=== PATIENT | male | born 1980 | race Two or more races ===

== ENCOUNTER 2019-08-08 12:54 | Emergency (ER) | payer SELFPAY ==
[2019-08-08 13:01] VITALS: BP 140/85
[2019-08-08] MEDS ORDERED: ASPIRIN 81 MG TABLET CHEW PO ONE (13:30)
[2019-08-08 13:38] LABS: BASOPHILS # (AUTO) 0.04 x10^3/uL (0-0.1); BASOPHILS % (AUTO) 1 % (0-1); EOSINOPHILS # (AUTO) 0.08 x10^3/uL (0-0.4); EOSINOPHILS % (AUTO) 1 % (1-7); LYMPHOCYTES # (AUTO) 2.16 x10^3/uL (1-3.4); LYMPHOCYTES % (AUTO) 28 % (22-44); MD NO; MEAN CORPUSCULAR HEMOGLOBIN 29.9 pg (27.5-34.5); MEAN CORPUSCULAR HGB CONC 34.3 g/dL (33.2-36.2); MEAN CORPUSCULAR VOLUME 87.2 fL (81-97); MEAN PLATELET VOLUME 8.1 fL (7.4-10.4); MONOCYTES # (AUTO) 0.45 x10^3/uL (0.2-0.8); MONOCYTES % (AUTO) 6 % (2-9); NEUTROPHILS # (AUTO) 5.13 x10^3/uL (1.8-6.8); NEUTROPHILS % (AUTO) 65 % (42-75); PLATELET COUNT 263 x10^3/uL (130-400); RED BLOOD COUNT 5.19 x10^6/uL (4.38-5.82); RED CELL DISTRIBUTION WIDTH 12.1 % (9.4-14.8)
[2019-08-08 13:43] LABS: ALANINE AMINOTRANSFERASE 53 U/L (12-78); ANION GAP 5 mmol/L (5-15); CALCIUM 8.9 mg/dL (8.5-10.1); CHLORIDE 110 mmol/L (98-107); CREATININE 0.89 mg/dL (0.7-1.3)
[2019-08-08 13:47] LABS: ALKALINE PHOSPHATASE 67 U/L (45-117); BILIRUBIN,TOTAL 0.7 mg/dL (0.2-1.0); TOTAL PROTEIN 8.2 g/dL (6.4-8.2); TROPONIN I < 0.015 ng/mL (0.000-0.045)
--- NOTE | 2019-08-08 15:27 | NUR ---
protection specialist: Pt ambulatory to ED room 04 from lobby at this time
--- NOTE | 2019-08-08 15:37 | NUR ---
ASSUMED PRIMARY CARE OF PT: PT PRESENTED TO ED D/T LEFT SIDED CHEST PAIN RADIATING TO BACK SINCE 0300 THIS AM. PT DENIES N/V. PT STATES INCREASE PAIN WITH ACTIVITY. ERMD AT BEDSIDE EVALUATING PT. ERMD DOES NOT WANT RN TO ADMINISTER 162MG OF ASA PER EMAR. ERMD PLACING ORDERS THEN PT TBDC.
[2019-08-08] MEDS ORDERED: KETOROLAC 30 MG/1 ML IM ONE (16:00)
[2019-08-08] MEDS ORDERED: KETOROLAC 30 MG/1 ML ONE (16:11)
--- NOTE | 2019-08-08 16:17 | NUR ---
RN ADMINISTERED MEDICATION PER EMAR. AWAITING DC PAPERWORK. PT TBDC.
--- NOTE | 2019-08-08 16:21 | NUR ---
PT BEING DISCHARGED HOME IN A STABLE CONDITION. DC INSTRUCTIONS WERE DISCUSSED WITH PT AND PT'S . PT AND PT'S VERBALIZED UNDERSTANDING. NO FURTHER QUESTIONS OR CONCERNS WERE EXPRESSED AT THAT TIME. PT AMBULATED WITH RN AND TO DC DESK. STEADY GAIT.
== END 2019-08-08 16:24 | disposition home or self-care (01) ==
LOC: ED 16:14
DX: R07.89 Other chest pain (principal)
CPT/HCPCS: 36415; 71046; 80053; 84484; 85025; 93005; 96372; 99284; J1885